=== PATIENT | female | born 1980 | race Caucasian/White ===

== ENCOUNTER → 2016-06-07 | Outpatient (CLI) | payer OTHER ==
[~2016-06-07] MED LIST: DERMOPLAST SPRA56 ML; FLUVOXAMINE MAL25 MG PO; IBUPROFEN 600600 M1; LANOLIN56 GM; LOCOID 0.1% CRE15 GM; NORCO 5-325 TA1 EACH PO; TUCKS1 EAC1; ZOFRAN ODT4 MG PO
== END ==
LOC: ULTRA 09:24
DX: O09.521 Supervision of elderly multigravida, first trimester (principal); Z3A.11 11 weeks gestation of pregnancy